=== PATIENT | female | born 2000 | race Hispanic/Latino ===

== ENCOUNTER 2019-01-27 03:16 | Emergency (ER) | payer MEDICARE, OTHER ==
[~2019-01-27] VITALS: Ht 167.6 cm; Wt 88.5 kg
== END 2019-01-27 04:25 | disposition other institution (70) ==
LOC: ER 03:16 → EDBD 03:16 → ER 04:25
DX: O26.893 Other specified pregnancy related conditions, third trimester (principal); R10.2 Pelvic and perineal pain
CPT/HCPCS: 99284